=== PATIENT | female | born 1980 | race Caucasian/White ===

== ENCOUNTER 2016-09-27 13:09 | Emergency (ER) | payer MEDICAID, OTHER ==
[~2016-09-27] VITALS: Ht 157.5 cm; Wt 72.6 kg
[2016-09-27 14:14] LABS: Urine Bilirubin Negative (Negative); Urine Blood Negative /uL (Negative); Urine Color Yellow (Yellow); Urine Glucose Normal (Normal); Urine Ketone Negative (Negative); Urine Mucus MODERATE (None Seen); Urine Nitrite Negative (Negative); Urine RBC 8 /hpf (0 - 4); Urine Squamous Epithelial Cell FEW /hpf (<5)
[2016-09-27 14:16] LABS: Basophils # (auto) 0 uL; Basophils % (auto) 0.3 % (0.0-2.0); Eosinophils # (auto) 0 uL; Eosinophils % (auto) 0.4 % (0.0-7.0); Hematocrit 39.5 % (36.0-46.0); Hemoglobin 13.2 g/dL (12.2-16.2); Lymphocytes # (auto) 1.2 uL; Lymphocytes % (auto) 12.5 % (10.0-50.0); Mean Corpuscular Hemoglobin 29.4 pg (28.0-32.0); Mean Corpuscular Hgb Conc. 33.5 g/dL (32.0-36.0); Mean Corpuscular Volume 87.7 fL (80.0-100.0); Mean Platelet Volume 7.7 fL (7.4-10.4); Monocytes # (auto) 0.5 uL; Neutrophils % (auto) 81.8 % (37.0-80.0); Platelet Count (auto) 302 10^3/uL (140-450); Red Cell Distribution Width 12.9 % (11.6-16.0); White Blood Cell 9.7 10^3/uL (4.4-10.8)
[2016-09-27 14:44] LABS: Albumin 3.7 g/dL (3.4-5.0); BUN/Creatinine Ratio 14.5; Bilirubin, Total 0.3 mg/dL (0.2-1.0); Potassium 3.8 mmol/L (3.5-5.1); Total Protein 7.3 g/dL (6.4-8.2)
[2016-09-27 17:38] VITALS: BP 121/70
[2016-09-27] MEDS ORDERED: ACETAMINOPHEN 500 MG TAB PO ONE (17:45)
[2016-09-27] MEDS ORDERED: cefTRIAXone SOD 1,000 MG VL IM ONE (17:45)
[2016-09-27] MEDS ORDERED: LACTULOSE 20Gm/30ML SOLN PO ONE (17:45)
== END 2016-09-27 19:10 | disposition home or self-care (01) ==
LOC: ER 13:15
DX: K59.00 Constipation, unspecified (principal); J03.90 Acute tonsillitis, unspecified; H66.91 Otitis media, unspecified, right ear; Z88.8 Allergy status to other drugs, medicaments and biological substances
CPT/HCPCS: 36415; 71020; 74176; 80053; 81001; 81025; 85025; 96372; 99285; J0696

== ENCOUNTER 2018-12-23 17:40 | Emergency (ER) | payer MEDICAID, OTHER ==
[~2018-12-23] VITALS: Ht 154.9 cm; Wt 66.8 kg
[2018-12-23 18:00] VITALS: BP 126/74
[2018-12-23] MEDS: KETOROLAC TROMETH 60MG/2ML VIAL IM ONE (18:10)
[2018-12-23] MEDS: HYDROcodone-ACET 7.5/325MG TAB PO ONE ×2 (18:21→18:36)
== END 2018-12-23 18:43 | disposition home or self-care (01) ==
LOC: ER 17:47
DX: M54.41 Lumbago with sciatica, right side (principal); Z88.6 Allergy status to analgesic agent; X50.9XXA Other and unspecified overexertion or strenuous movements or postures, initial encounter; Y93.89 Activity, other specified; Y92.89 Other specified places as the place of occurrence of the external cause; Y99.8 Other external cause status
CPT/HCPCS: 96372; 99283; J1885